=== PATIENT | male | born 1940 | race Caucasian/White ===

== ENCOUNTER → 2016-08-10 | Outpatient (CLI) | payer MEDICARE, BC, OTHER ==
[2016-08-11 09:47] LABS: PSA % FREE 22.8 % (.); PSA FREE 3.65 ng/mL
== END ==
LOC: OD 09:22
PROVIDERS: ATTEND Urology
DX: R33.9 Retention of urine, unspecified (principal); I10 Essential (primary) hypertension; E78.5 Hyperlipidemia, unspecified
CPT/HCPCS: 36415; 84154

== ENCOUNTER 2017-05-14 07:30 | Emergency (ER) | payer MEDICARE, BC, OTHER ==
--- NOTE | 2017-05-14 09:11 | RADIOLOGY REPORT (SQ) ---
EXAM DESCRIPTION: CT HEAD WITHOUT COMPLETED DATE/TIME: 05/14/2017 8:55 am REASON FOR STUDY: hit head on table x 1 month ago, reports MONTOYA/foggy COMPARISON: None. TECHNIQUE: Axial images acquired through the brain without intravenous contrast. Images reviewed wi th bone, brain and subdural windows. Images stored on PACS. All CT scanners at this facility use dose modulation, iterative reconstruction, and/or weight based d osing when appropriate to reduce radiation dose to as low as reasonably achievable (ALARA). [facility]: Dose Right [facility]: CareDose [facility]: Dose Right [facility]: Teradose 4D [facility]: Smart I.Systems RADIATION DOSE: CT Rad equipment meets quality standard of care and radiation dose reduction techniq ues were employed. CTDIvol: 64.6 mGy. DLP: 1163 mGy-cm. mGy. LIMITATIONS: None. FINDINGS: VENTRICLES: Normal size and contour. CEREBRUM: No masses. No hemorrhage. No midline shift. No evidence for acute infarction. Normal gra y/white matter differentiation. No areas of low density in the white matter. CEREBELLUM: No masses. No hemorrhage. No alteration of density. No evidence for acute infarction. EXTRAAXIAL SPACES: No fluid collections. No masses. ORBITS AND GLOBE: No intra- or extraconal masses. Normal contour of globe without masses. CALVARIUM: No fracture. PARANASAL SINUSES: Air-fluid level left maxillary sinus SOFT TISSUES: No mass or hematoma. OTHER: No other significant finding. IMPRESSION: NORMAL BRAIN CT WITHOUT CONTRAST. No posttraumatic change related to previous injury. Incidental finding of acute left maxillary sinusitis. EVIDENCE OF ACUTE STROKE: NO. COMMENT: Quality ID # [id number]: Final reports with documentation of one or more dose reduction techniques (e.g., Automated exposure control, adjustment of the mA and/or kV according to patient size, use of iterative reconstruction technique) TECHNICAL DOCUMENTATION: JOB ID: [id number] [employer]- All Rights Reserved
--- NOTE | 2017-05-14 09:19 | RADIOLOGY REPORT (SQ) ---
EXAM DESCRIPTION: CERV SP 4 OR 5 VIEWS COMPLETED DATE/TIME: 05/14/2017 9:09 am REASON FOR STUDY: hit head on table x 1 month ago, reports MONTOYA/foggy COMPARISON: None. NUMBER OF VIEWS: Five views. TECHNIQUE: AP, lateral, obliques and odontoid radiographic images acquired of the cervical spine. LIMITATIONS: None. FINDINGS: MINERALIZATION: Normal. ALIGNMENT: Anatomic. VERTEBRAE: Vertebral bodies of normal height. DISCS: Multilevel moderate to severe disc space narrowing extending from C2-C3 through C7-T1 FORAMINA: Foraminal narrowing C3-C4, foraminal narrowing C3-C4, C4-C5 bilaterally. LATERAL AND POSTERIOR ELEMENTS: Moderate to severe lateral facet arthropathy predominately on the lef t mid cervical spine. HARDWARE: None in the spine. SOFT TISSUES: No masses or calcifications. Lung apices clear. OTHER: No other significant finding. IMPRESSION: No acute posttraumatic bony changes related to previous injury. 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 TECHNICAL DOCUMENTATION: JOB ID: [id number] [employer]- All Rights Reserved
[2017-05-14 09:47] LABS: ABSOLUTE BASOPHILS # (AUTO) 0.1 10^3/uL (0.0-0.2); ABSOLUTE EOSINOPHILS # (AUTO) 0.4 10^3/uL (0.0-0.6); ABSOLUTE LYMPHOCYTES (AUTO) 1.4 10^3/uL (0.5-4.7); ABSOLUTE MONOCYTES (AUTO) 0.4 10^3/uL (0.1-1.4); ABSOLUTE NEUT (AUTO) 4.3 10^3/uL (1.7-8.2); BASOPHILS % (AUTO) 1.2 % (0-2); EOSINOPHILS % (AUTO) 5.4 % (0-6); HEMOGLOBIN 13.8 g/dL (13.5-17.0); LYMPHOCYTES % (AUTO) 21.3 % (13-45); MEAN CORPUSCULAR HEMOGLOBIN 29.9 pg (27.0-33.4); MEAN CORPUSCULAR HGB CONC 33.6 g/dL (32.0-36.0); MEAN CORPUSCULAR VOLUME 89 fl (80-97); MONOCYTES % (AUTO) 6.4 % (3-13); PLATELET COUNT 262 10^3/uL (150-450); RED CELL DISTRIBUTION WIDTH 13.6 % (11.5-14.0); SEGMENTED NEUTROPHILS % (AUTO) 65.7 % (42-78); TOTAL CELLS COUNTED % (AUTO) 100 %; WHITE BLOOD COUNT 6.5 10^3/uL (4.0-10.5)
[2017-05-14 10:08] LABS: ALANINE AMINOTRANSFERASE 37 U/L (21-72); ALKALINE PHOSPHATASE 112 U/L (38-126); ANION GAP 8 (5-19); ASPARTATE AMINO TRANSFERASE 34 U/L (17-59); BILIRUBIN,DIRECT 0.2 mg/dL (0.0-0.4); BILIRUBIN,TOTAL 0.2 mg/dL (0.2-1.3); BLOOD UREA NITROGEN 19 mg/dL (7-20); CALCIUM 9.6 mg/dL (8.4-10.2); CARBON DIOXIDE 30 mmol/L (22-30); CHLORIDE 102 mmol/L (98-107); GLUCOSE 89 mg/dL (75-110); POTASSIUM 4.2 mmol/L (3.6-5.0); SODIUM 140.1 mmol/L (137-145); TOTAL PROTEIN 6.6 g/dL (6.3-8.2)
--- NOTE | 2017-05-14 10:27 | ER Document Report ---
ED Fall - General Chief Complaint: Fall Stated Complaint: FALL/HEADACHE Time Seen by Provider: 05/14/17 08:34 Mode of Arrival: Ambulatory Information source: Patient TRAVEL OUTSIDE OF THE [place] IN LAST 30 DAYS: No - HPI Notes: Healthy 77-year-old male presents today with complaints of bilateral frontal headache for 2 weeks" fogginess" for the last 2 weeks as well. Reports he hit his head on a coffee table approximately 4 weeks ago, the back of his head, was not evaluated. Ports pain is 4 out of 10, throbbing achy. Denied any blurred vision double vision loss of vision, denies any neurological changes. Reports she was unable to get into his primary care for this issue. Denies any nausea vomiting diarrhea. Denies any weakness in bilateral upper or lower extremities , denies any numbness or tingling bilateral lower extremities states pain is 4 out of 10, throbbing achy. Has been trying IBU and Tylenol without relief. Has tried heat with some relief. Reports neck pain as well, unsure if he injured his neck when he fell, but also thinks the headache could be referred pain from his neck. patient is not on blood thinners. Denies any history of diabetes, hypertension, hypercholesterolemia or other chronic issues. Patient does not take prescription medications. Denies history of diabetes. Patient has been eating and drinking normally. Denies any fevers or chills. - Related data Allergies/Adverse Reactions: iodine [Iodine] Allergy (Intermediate, Verified 05/14/17 07:32) nabumetone [From Relafen] Allergy (Intermediate, Verified 05/14/17 07:32) Shellfish * [Shellfish] Allergy (Intermediate, Verified 05/14/17 07:32) temazepam [From Restoril] Allergy (Intermediate, Verified 05/14/17 07:32) Confusion Tetanus Vaccines and Toxoid [Tetanus] Allergy (Intermediate, Verified 05/14/17 07:32) Past Medical History - General Information source: Patient - Social History Smoking Status: Unknown if Ever Smoked Family History: None Patient has suicidal ideation: No Patient has homicidal ideation: No - Past Medical History Cardiac Medical History: Reports: Hx Hypercholesterolemia, Hx Hypertension Neurological Medical History: Denies: Hx Seizures Renal/ Medical History: Denies: Hx Peritoneal Dialysis Review of Systems - Review of Systems Constitutional: No symptoms reported EENT: No symptoms reported Cardiovascular: No symptoms reported Respiratory: No symptoms reported Gastrointestinal: No symptoms reported Genitourinary: No symptoms reported Male Genitourinary: No symptoms reported Musculoskeletal: See HPI Skin: No symptoms reported Hematologic/Lymphatic: No symptoms reported Neurological/Psychological: See HPI Physical Exam - Vital signs Vitals: Temp Pulse Resp BP Pulse Ox 97.8 F 68 16 166/64 H 97 05/14/17 07:36 05/14/17 07:36 05/14/17 07:36 05/14/17 07:36 05/14/17 07:36 - General General appearance: Appears well In distress: None - HEENT Head: Normocephalic Conjunctiva: Normal Cornea: Normal Extraocular movements intact: Yes Pupils: PERRL Nerve palsy: No Visual dsouza normal: Yes Ears: Normal External canal: Normal Tympanic membrane: Normal Sinus: Normal Nasal: Normal Mouth/Lips: Normal Mucous membranes: Normal Pharynx: Normal Neck: Other - Cervical spinal tenderness on palpation. TM intact bilaterally. No meningismus. No noted lymphadenopathy. L shoulder tenderness with abduction at 50 degrees, fashion director + 2 equally. DTR + 2 bilaterally and equally. full motor and sensory function throughout. strength in BUE 5/5 equally and bilaterally. no ecchymosis or lacerations. normal supination, pronation, adduction, flexion and extension in shoulder and elbow. No vascular compromise - Respiratory Respiratory status: No respiratory distress Chest status: Nontender Breath sounds: Normal Chest palpation: Normal - Cardiovascular Rhythm: Regular Heart sounds: Normal auscultation Murmur: No Pulses: Normal: Radial Normal capillary refill: Yes - Abdominal Inspection: Normal Distension: No distension Tenderness: Nontender Organomegaly: No organomegaly - Extremities General upper extremity: Normal inspection General lower extremity: Normal inspection - Neurological Neuro grossly intact: Yes Cognition: Normal Orientation: AAOx4 Estefania Coma Scale Eye Opening: Spontaneous Estefania Coma Scale Verbal: Oriented Estefania Coma Scale Motor: Obeys Commands Irma Coma Scale Total: 15 Speech: Normal Cranial nerves: Normal Cerebellar coordination: Normal Motor strength normal: LUE, RUE, LLE, RLE 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 Tongue midline, speech is clear. Normal gait. - Psychological Associated symptoms: Normal affect, Normal mood - Skin Skin Temperature: Warm Skin Moisture: Dry Skin Color: Normal Course - Re-evaluation Re-evalutation: 05/14/17 15:19 Reevaluation, patient appears to be feeling a little better. Discussed with patient CT findings of head as well as x-ray findings of neck. Discussed the patient that he does have significant arthritis in his neck, this could be causing his headache. Reported to him that his CT was negative for any acute findings such as skull fracture, lesions, masses, subdural hematoma or any intracerebral hemorrhaging, etc. because the patient that likely his headache is referred pain from a tension headache from it as well as his arthritis. 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 Discussed with patient to follow-up with neurologist as well as his primary care in the next 3 days.. Also advised to have him follow-up with an podiatrist orthopedic if his neck pain becomes worse. After performing a Medical Screening Examination, I estimate there is LOW risk for CENTRAL CORD SYNDROME, EPIDURAL MASS LESION, SEVERE SPINAL STENOSIS, ARTERIAL DISSECTION, MENINGITIS, or ACUTE CORONARY SYNDROME, thus I consider the discharge disposition reasonable. I have reevaluated this patient multiple times and no significant life threatening changes are noted. The patient and I have discussed the diagnosis and risks, and we agree with discharging home to follow-up on an outpatient basis with the understanding that symptoms and presentations can change. We also discussed returning to the Emergency Department immediately if new or worsening symptoms occur. We have discussed the symptoms which are most concerning (e.g., saddle anesthesia, urinary or bowel incontinence or retention, changing or worsening pain) that necessitate immediate return. After performing a Medical Screening Examination, I estimate there is LOW risk for INTRACRANIAL HEMORRHAGE, ISCHEMIC CVA, MALIGNANT DYSRHYTHMIA, ACUTE CORONARY SYNDROME, MENINGITIS, PULMONARY EMBOLISM, or SEPSIS thus I consider the discharge disposition reasonable. I have reevaluated this patient multiple times and no significant life threatening changes are noted. The patient and I have discussed the diagnosis and risks, and we agree with discharging home with close follow-up with the understanding that symptoms and presentations can change. We also discussed returning to the Emergency Department immediately if new or worsening symptoms occur. We have discussed the symptoms which are most concerning (e.g., changing or worsening pain, weakness, vomiting, fever) that necessitate immediate return. - Vital Signs Vital signs: Temp Pulse Resp BP Pulse Ox 97.4 F 71 16 154/75 H 100 05/14/17 10:32 05/14/17 10:32 05/14/17 07:36 05/14/17 10:32 05/14/17 10:32 - Laboratory Result Diagrams: 05/14/17 09:20 05/14/17 09:20 Discharge - Discharge Clinical Impression: Post concussive syndrome, Neck arthritis Clinical Impression: (Ruled Out): Acute sprain of ligament of neck Condition: Good Disposition: HOME, SELF-CARE Additional Instructions: Post-Concussion Syndrome Post-concussion syndrome often follows a mild head injury. Dizziness, mild nausea, mild headache, trouble concentrating, and a general sense of "not being right" may persist for a week or two. This is a frequent complication of concussion. However, if the symptoms worsen, or new symptoms develop, you should be re-examined by the physician. There is no specific cure for post-concussion syndrome. You can take mild pain medication such as ibuprofen or acetaminophen. While you should not drive if you are dizzy, you can get back to your regular activities as quickly as the symptoms will allow. And while vigorous exercise may worsen the headache, mild physical activity often is helpful. Sitting and thinking about your symptoms will worsen them. If difficulties continue, you may need referral for special therapy to help you regain full mental function. Call the physician if you are worsening, or if symptoms are still present in one week. Report any new symptoms immediately. Arthritis Your symptoms are due to arthritis. Arthritis is an inflammation of the joints. There are many types -- osteoarthritis (due to "wear and tear"), auto- immmune arthritis (such as rheumatoid, lupus, Ashvin's, and others), and crystal -induced arthritis (such as gout and pseudogout). The physician's examination, combined with laboratory tests, will determine the cause of your arthritis. All types of arthritis are treated with antiinflammatory medications. Other medication may be required for special types of arthritis, or if your problem does not respond to the antiinflammatory medicine. Local warmth may be helpful. Move the involved joints through the full range of motion daily. Mild exercise is usually still possible for most persons with arthritis (ask your physician). Swimming provides good exercise without damaging the joints. Contact the physician if you are worsening in any way. Up with PCP within 2 days. Up with a neurologist within 1 week for postconcussive syndrome, take Tylenol as needed for pain, heat 20 minutes on 20 minutes off to neck several times a day. Return immediately for any new or worsening symptoms. Follow up with primary care provider, call tomorrow to make followup appointment. [facility] [address], [place] [address] Suggest an edit Referrals: MARCO TATE, [employer] [Primary Care Provider] - Follow up as needed
[2017-05-14 10:33] VITALS: BP 154/75
== END 2017-05-14 10:37 | disposition home or self-care (01) ==
LOC: ER 07:30
DX: F07.81 Postconcussional syndrome (principal); M47.9 Spondylosis, unspecified; R51 Headache; M54.2 Cervicalgia; Z91.013 Allergy to seafood; Z88.7 Allergy status to serum and vaccine; Z88.8 Allergy status to other drugs, medicaments and biological substances
CPT/HCPCS: 36415; 70450; 72050; 80053; 85025; 86140; 99284

== ENCOUNTER 2017-11-03 22:13 | Emergency (ER) | payer MEDICARE, BC, OTHER ==
[2017-11-03 22:47] VITALS: BP 138/51
--- NOTE | 2017-11-04 00:12 | ER Document Report ---
ED General - General Chief Complaint: Tremor Stated Complaint: SHAKING,PAINFUL URINATION Time Seen by Provider: 11/04/17 00:08 Notes: The patient is a 77-year-old male, past medical history BPH, urethral strictures (followed by Dr. Chiu at [facility]), presents with increasing difficulty urinating and mild dysuria over the past several hours. When this happens, he begins to have tremors. He took a Flexeril prescribed to him by his primary care physician and his tremors have improved, but he is still only able to urinate a small amount. Patient denies flank pain, nausea, vomiting, testicular pain, hematuria, abdominal pain or rash. TRAVEL OUTSIDE OF THE [place] IN LAST 30 DAYS: No - Related Data Allergies/Adverse Reactions: iodine [Iodine] Allergy (Intermediate, Verified 05/14/17 07:32) nabumetone [From Relafen] Allergy (Intermediate, Verified 05/14/17 07:32) Shellfish * [Shellfish] Allergy (Intermediate, Verified 05/14/17 07:32) temazepam [From Restoril] Allergy (Intermediate, Verified 05/14/17 07:32) Confusion Tetanus Vaccines and Toxoid [Tetanus] Allergy (Intermediate, Verified 05/14/17 07:32) Past Medical History - General Information source: Patient - Social History Smoking Status: Unknown if Ever Smoked Family History: None - Past Medical History Cardiac Medical History: Reports: Hx Hypercholesterolemia, Hx Hypertension Neurological Medical History: Denies: Hx Seizures Renal/ Medical History: Denies: Hx Peritoneal Dialysis Review of Systems - Review of Systems Notes: REVIEW OF SYSTEMS: CONSTITUTIONAL: -fevers, -chills EENT: -eye pain, -difficulty swallowing, -nasal congestion CARDIOVASCULAR: -chest pain, -syncope. RESPIRATORY: -cough, -SOB GASTROINTESTINAL: -abdominal pain, -nausea, -vomiting, -diarrhea GENITOURINARY: +dysuria, +difficulty urinating, -hematuria MUSCULOSKELETAL: -back pain, -neck pain SKIN: -rash or skin lesions. HEMATOLOGIC: -easy bruising or bleeding. LYMPHATIC: -swollen, enlarged glands. NEUROLOGICAL: -altered mental status or loss of consciousness, -headache, + tremors PSYCHIATRIC: -anxiety, -depression. ALL OTHER SYSTEMS REVIEWED AND NEGATIVE. Physical Exam - Vital signs Vitals: Temp Pulse Resp BP Pulse Ox 98.7 F 108 H 20 138/51 H 98 07/21/18 22:45 11/03/17 22:45 11/03/17 22:45 11/03/17 22:45 11/03/17 22:45 - Notes Notes: PHYSICAL EXAMINATION: GENERAL: Well-appearing, well-nourished and in no acute distress. HEAD: Atraumatic, normocephalic. EYES: Pupils equal round and reactive to light, extraocular movements intact, sclera anicteric, conjunctiva are normal. ENT: nares patent, oropharynx clear without exudates. Moist mucous membranes. NECK: Normal range of motion, supple without lymphadenopathy LUNGS: Breath sounds clear to auscultation bilaterally and equal. No wheezes rales or rhonchi. HEART: Regular rate and rhythm without murmurs ABDOMEN: Soft, nontender, normoactive bowel sounds. No guarding, no rebound. No masses appreciated. EXTREMITIES: Normal range of motion, no pitting or edema. No cyanosis. NEUROLOGICAL: Cranial nerves grossly intact. Normal speech, normal gait. Normal sensory and motor exams. PSYCH: Normal mood, normal affect. SKIN: Warm, Dry, normal turgor, no rashes or lesions noted. Course - Re-evaluation Re-evalutation: Patient was able to urinate in the ER. Postvoid residual was less than 50 mL. His blood work was unremarkable and his urinalysis does not show evidence of a UTI. Will begin him on Flomax due to his BP, Pyridium for his dysuria and have a follow-up with his urologist as scheduled this week. Given very strict return precautions about urinary retention and he understands. - Vital Signs Vital signs: Temp Pulse Resp BP Pulse Ox 98.7 F 108 H 20 138/51 H 98 11/03/17 22:45 11/03/17 22:45 11/03/17 22:45 11/03/17 22:45 11/03/17 22:45 - Laboratory Result Diagrams: 11/04/17 00:35 11/04/17 00:35 Laboratory results interpreted by me: 11/04/17 11/04/17 11/04/17 00:35 00:35 00:35 RDW 14.5 H Seg Neuts % (Manual) 92 H Band Neutrophils % 1 L Lymphocytes % (Manual) 2 L Abs Lymphs (Manual) 0.2 L BUN 30 H Est GFR (Non-Af Amer) 58 L Glucose 128 H Urine Ketones TRACE H Ur Leukocyte Esterase TRACE H Urine Ascorbic Acid 40 H Discharge - Discharge Clinical Impression: Urinary retention Condition: Stable Disposition: HOME, SELF-CARE Additional Instructions: Urinary Retention Urinary retention is inability to empty the bladder. It can result from a urine infection, or from mechanical problems such as an enlarged prostate gland or swelling of the urethra. Drugs or alcohol can also lead to urine retention. The condition is usually treated by passage of a catheter. If the physician thinks the problem will continue, the catheter may be left in place for a few days. Sometimes drugs are used to stimulate the bladder if the physician feels that inadequate bladder contraction is the cause. If the condition leading to the retention is a chronic one, such as an enlarged prostate, you will be referred to a specialist for further care. Call the physician or return if you develop fever, flank or back pain, pain on urination, or recurrent difficulty passing the urine. Prescriptions: Phenazopyridine HCl [Pyridium 200 mg Tablet] 200 mg PO TID #15 tablet Tamsulosin HCl [Flomax 0.4 mg Cap.sr] 0.4 mg PO DAILY #14 cap.sr.24h Forms: Elevated Blood Pressure Referrals: MARCO TATE FNP-C [Primary Care Provider] - Follow up as needed YOLY,ANABEL James MD [NO LOCAL MD] - Follow up as needed
[2017-11-04 00:50] LABS: HEMATOCRIT 40.2 % (37.9-51.0); HEMOGLOBIN 13.8 g/dL (13.5-17.0); MEAN CORPUSCULAR HEMOGLOBIN 30.6 pg (27.0-33.4); MEAN CORPUSCULAR HGB CONC 34.2 g/dL (32.0-36.0); MEAN CORPUSCULAR VOLUME 89 fl (80-97); PLATELET COUNT 199 10^3/uL (150-450); RED CELL DISTRIBUTION WIDTH 14.5 % (11.5-14.0); WHITE BLOOD COUNT 8.4 10^3/uL (4.0-10.5)
[2017-11-04 01:05] LABS: APPEARANCE,URINE CLEAR; BILIRUBIN,URINE NEGATIVE (NEGATIVE); COLOR,URINE YELLOW; GLUCOSE, URINE NEGATIVE (NEGATIVE); KETONES,URINE TRACE mg/dL (NEGATIVE); LEUKOCYTE ESTERASE,URINE TRACE (NEGATIVE); NITRITE,URINE NEGATIVE (NEGATIVE); PROTEIN,URINE NEGATIVE (NEGATIVE); URINE SPECIFIC GRAVITY 1.018; UROBILINOGEN,URINE NEGATIVE mg/dL (<2.0)
[2017-11-04 01:09] LABS: ALANINE AMINOTRANSFERASE 33 U/L (21-72); ALKALINE PHOSPHATASE 118 U/L (38-126); ANION GAP 13 (5-19); ASPARTATE AMINO TRANSFERASE 32 U/L (17-59); BILIRUBIN,DIRECT 0.2 mg/dL (0.0-0.4); BILIRUBIN,TOTAL 0.6 mg/dL (0.2-1.3); BLOOD UREA NITROGEN 30 mg/dL (7-20); CALCIUM 9.5 mg/dL (8.4-10.2); CARBON DIOXIDE 27 mmol/L (22-30); CHLORIDE 100 mmol/L (98-107); GLUCOSE 128 mg/dL (75-110); POTASSIUM 4.1 mmol/L (3.6-5.0); TOTAL PROTEIN 6.9 g/dL (6.3-8.2)
[2017-11-04 01:13] LABS: ABSOLUTE LYMPHOCYTES# (MANUAL) 0.2 10^3/uL (0.5-4.7); ABSOLUTE MONOCYTES # (MANUAL) 0.4 10^3/uL (0.1-1.4); ABSOLUTE NEUTROPHILS# (MANUAL) 7.8 10^3/uL (1.7-8.2); BAND NEUTROPHILS % (MANUAL) 1 % (3-5); BASOPHILS % (MANUAL) 0 % (0-2); EOSINOPHILS % (MANUAL) 0 % (0-6); LYMPHOCYTES % (MANUAL) 2 % (13-45); MONOCYTES % (MANUAL) 5 % (3-13); SEGMENTED NEUTROPHILS % (MAN) 92 % (42-78); TOTAL CELLS COUNTED 100
[2017-11-04 01:17] LABS: PLATELET COMMENT ADEQUATE; RBC MORPHOLOGY COMMENT NORMO-CYTIC/CHROMIC
[2017-11-04] MEDS ORDERED: TAMSULOSIN HCL 0.4 MG CAP.SR.24H PO ONE (01:55)
[2017-11-04] MEDS ORDERED: PHENAZOPYRIDINE HCL 200 MG TABLET PO ONE (01:55)
== END 2017-11-04 03:26 | disposition home or self-care (01) ==
LOC: ER 22:13
DX: R33.9 Retention of urine, unspecified (principal); E78.00 Pure hypercholesterolemia, unspecified; I10 Essential (primary) hypertension; Z88.7 Allergy status to serum and vaccine; Z91.013 Allergy to seafood
CPT/HCPCS: 99283; 36415; 85025; 80053; 81001; A9270 ×2; J3490